=== PATIENT | female | born 1995 | race Caucasian/White ===

== ENCOUNTER → 2017-01-14 | Outpatient (CLI) | payer OTHER ==
--- NOTE | 2017-01-15 08:33 | RAD ---
INDICATION: ATTN 3, 4TH METATARSALS, HIT HAND, FX COMPARISON: None. IMPRESSION: Right hand: 3 views obtained. There is a mildly displaced fifth metacarpal fracture distally.
== END | disposition home or self-care (01) ==
LOC: RAD 17:06
PROVIDERS: ATTEND Physician Assistant
DX: S62.302A Unspecified fracture of third metacarpal bone, right hand, initial encounter for closed fracture (principal); S62.304A Unspecified fracture of fourth metacarpal bone, right hand, initial encounter for closed fracture; X58.XXXA Exposure to other specified factors, initial encounter; Y93.89 Activity, other specified; Y92.89 Other specified places as the place of occurrence of the external cause; Y99.8 Other external cause status
CPT/HCPCS: 73130

== ENCOUNTER 2019-06-23 10:58 | Emergency (ER) | payer OTHER ==
[~2019-06-23] VITALS: Ht 162.6 cm; Wt 107.5 kg
[2019-06-23] MEDS ORDERED: ONDA4TAB7 PO (11:25)
[2019-06-23] MEDS ORDERED: MELO7.5T29 PO (11:25)
[2019-06-23] MEDS ORDERED: PROM118S9 PO (11:25)
--- NOTE | 2019-06-23 11:26 | PHYS DOC ---
Past History Past Medical History: Other Additional Past Medical Histor: testosterone supplementation Past Surgical History: No Surgical History Smoking: Cigarettes, Less than 1pk/day Alcohol Use: Occasionally Drug Use: None Adult General Chief Complaint Chief Complaint: NAUSEA/VOMITING/DIARRHEA HPI HPI Patient is a 23-year-old trans female to male who has been having nasal congestion for the past 5 days. Was diagnosed with pink eye 2 days ago. Today has had some nausea and vomiting. Cough is present without production. Generalized body aches. No blood in the emesis. No diarrhea. No recent travel. No sick contacts. Patient is not currently on any specific medicines for the conjunctivitis. Symptoms are moderate in intensity. Nothing seems to make them better or worse.[] Review of Systems Review of Systems Constitutional: Denies fever or chills [] Eyes: Denies change in visual acuity, or eye pain, see history of present illness [] HENT: See history of present illness[] Respiratory: Denies hemoptysis or shortness of breath [] Cardiovascular: No chest pain or palpitations[] GI: See history of present illness[] : Denies dysuria or hematuria [] Musculoskeletal: Denies back pain or joint pain [] Integument: Denies rash or skin lesions [] Neurologic: Denies headache, focal weakness or sensory changes [] Endocrine: Denies polyuria or polydipsia [] All other systems were reviewed and found to be within normal limits, except as documented in this note. Allergies Allergies Allergies Coded Allergies Type Severity Reaction Last Updated Verified No Known Drug Allergies 06/23/19 No Physical Exam Physical Exam Constitutional: Well developed, well nourished, no acute distress, non-toxic appearance. [] HENT: Normocephalic, atraumatic, bilateral external ears normal, oropharynx moist, no oral exudates, nose with clear crusty rhinorrhea. Posterior pharyngeal streaking is present.. [] Eyes: PERRLA, EOMI, conjunctiva is injected bilaterally, left worse than right, with limbic sparing, no discharge. [] Neck: Normal range of motion, no tenderness, supple, no stridor. [] Cardiovascular:Heart rate regular rhythm, no murmur [] Lungs & Thorax: Bilateral breath sounds clear to auscultation [] Abdomen: Bowel sounds normal, soft, no tenderness, no masses, no pulsatile masses. [] Skin: Warm, dry, no erythema, no rash. [] Back: No tenderness, no CVA tenderness. [] Extremities: No tenderness, no cyanosis, no clubbing, ROM intact, no edema. [] Neurologic: Alert and oriented X 3, normal motor function, normal sensory function, no focal deficits noted. [] Psychologic: Affect normal, judgement normal, mood normal. [] EKG EKG [] Radiology/Procedures Radiology/Procedures [] Course & Med Decision Making Course & Med Decision Making Pertinent Labs and Imaging studies reviewed. (See chart for details) Emergency department course: Patient arrived, was placed in bed, and tolerated exam well. Findings and plan were discussed with the patient who voiced understanding. All questions were answered. She was discharged in improved condition. Medical decision making: Patient is beyond the window for starting anti- influenza medication. No evidence of oral intake intolerance. No hypoxia.No evidence of pneumonia. Nontoxic patient. Since conjunctivitis is typically a viral infection and right eye was the initial one which is already improving, will hold on prescribing any antibiotics for conjunctivitis. Will treat with symptomatic care. [] Dragon Disclaimer Dragon Disclaimer This electronic medical record was generated, in whole or in part, using a voice recognition dictation system. Departure Departure: Impression: Primary Impression: Upper respiratory infection Additional Impression: Nausea and vomiting Disposition: 01 HOME, SELF-CARE Condition: IMPROVED Referrals: MABEL MEJIA PAC (PCP) Follow-up in 2 days Patient Instructions: Nausea and Vomiting, Upper Respiratory Infection, Adult Additional Instructions: Drink plenty of fluids, frequent small sips. No fatty foods, no milk, and no pepper for the next 48 hours. For the next 48 hours eat a diet rich in carbohydrates with foods such as bananas, rice, applesauce, and toast. Follow-up with your regular doctor in 2 days. Return to the ER if unable to tolerate liquids, blood in the emesis or what you are coughing up, or any other concerns. Scripts Ondansetron Hcl (ZOFRAN) 4 Mg Tablet 1 TAB PO Q6HRS for nausea or vomiting, #20 TAB Prov: RUSH LOREDO DO 06/23/19 D-Methorphan Hb/Prometh Hcl (PROMETHAZINE-DM SYRUP) 118 Ml Syrup 5 ML PO PRN Q4HRS for CONGESTION, #120 ML Prov: EIDENWHITNEYRUSH AMATO 06/23/19 Meloxicam (MELOXICAM) 7.5 Mg Tablet 7.5 MG PO DAILY for PAIN, #20 TAB Prov: RUSH LOREDO DO 06/23/19 Problem Qualifiers Primary Impression: Upper respiratory infection URI type: unspecified URI Qualified Codes: J06.9 - Acute upper respiratory infection, unspecified Additional Impression: Nausea and vomiting Vomiting type: unspecified Vomiting Intractability: non-intractable Qualified Codes: R11.2 - Nausea with vomiting, unspecified RUSH LOREDO DO Jun 23, 2019 11:26
[2019-06-23 11:32] VITALS: BP 121/91
== END 2019-06-23 11:29 | disposition home or self-care (01) ==
LOC: ER 10:58
DX: J06.9 Acute upper respiratory infection, unspecified (principal); R11.2 Nausea with vomiting, unspecified; F17.210 Nicotine dependence, cigarettes, uncomplicated
CPT/HCPCS: 99283